=== PATIENT | female | born 1945 | race Caucasian/White ===

== ENCOUNTER 2020-02-21 19:47 | Inpatient (IN) | payer MEDICARE, BC, OTHER ==
[~2020-02-21] VITALS: Ht 157.5 cm; Wt 63.8 kg
[2020-02-21] MEDS ORDERED: METO25TA6 PO (21:01)
[2020-02-21] MEDS ORDERED: ALBU8.5H8 INH (21:01)
[2020-02-21] MEDS ORDERED: iohexol 350MG/ML 100ml bottle IV ONE (21:24)
[2020-02-21] MEDS ORDERED: magnesium hydroxide 30ml (MOM) UD suspension PO PRN (22:20)
[2020-02-21] MEDS ORDERED: ondansetron/PF 4mg/2ml inj IV PRN (22:20)
[2020-02-21] MEDS ORDERED: mag hydrox/Alum hydrox/simeth 30ml oral suspension PO PRN (22:20)
[2020-02-21] MEDS ORDERED: heparin 10,000 units/1 ML INJ IV ONE (22:20)
[2020-02-21] MEDS ORDERED: albuterol 2.5 MG/3 ML nebule NEB PRN (22:20)
[2020-02-21] MEDS ORDERED: acetaminophen 325mg tablet PO PRN (22:20)
[2020-02-21 22:25] LABS: BASOPHILS # (AUTO) 0.1 X10'3 (0-0.2); BASOPHILS % (AUTO) 0.9 % (0-1); EOSINOPHILS # (AUTO) 0.1 X10'3 (0-0.9); EOSINOPHILS % (AUTO) 1.1 % (0-6); HEMATOCRIT 43.6 % (35.0-45.0); HEMOGLOBIN 14.6 g/dl (12.0-16.0); LYMPHOCYTES # (AUTO) 2.7 X10'3 (1.1-4.8); LYMPHOCYTES % (AUTO) 30.1 % (21-51); MEAN CORPUSCULAR HEMOGLOBIN 31.5 PG (27.0-31.0); MEAN CORPUSCULAR HGB CONC 33.5 g/dL (33.0-36.5); MEAN CORPUSCULAR VOLUME 93.8 FL (78-98); MEAN PLATELET VOLUME 10.1 FL (7.4-10.4); MONOCYTES # (AUTO) 0.7 X10'3 (0-0.9); MONOCYTES % (AUTO) 8.2 % (2-12); NEUTROPHILS # (AUTO) 5.4 X10'3 (1.8-7.7); NEUTROPHILS % (AUTO) 59.7 % (42-75); PLATELET COUNT 236 X10'3 (140-440); RED BLOOD COUNT 4.65 X10'6 (4.20-5.60); RED CELL DISTRIBUTION WIDTH 14.3 % (11.5-14.5)
[2020-02-21 22:34] LABS: PARTIAL THROMBOPLASTIN TIME 33 SECONDS (22-32)
[2020-02-21] MEDS: heparin 25,000 UNIT/250ml bag 250 ML IV SCH (23:40)
[2020-02-22] VITALS (14 sets, daily range): BP systolic 88–119; BP diastolic 38–74
[2020-02-22 02:24] LABS: ALBUMIN 3.3 G/DL (3.4-5.0); ANION GAP 11 (8-16); BLOOD UREA NITROGEN 16 MG/DL (7-18); BUN/CREATININE RATIO 17.8 (6.6-38.0); CALCIUM 8.6 MG/DL (8.5-10.1); CHLORIDE 106 MMOL/L (99-107); GLUCOSE 122 MG/DL (70-104); SODIUM 140 MMOL/L (135-145); TOTAL CARBON DIOXIDE 22.6 MMOL/L (24-32); eGFR 61 ML/MIN
--- NOTE | 2020-02-22 04:00 | NUR ---
Patient in room ED 3. I have received report from Domenica AGRAWAL and had the opportunity to ask questions and assume patient care.
--- NOTE | 2020-02-22 04:20 | NUR ---
Patient arrived on unit alert and oriented. Two RN skin check and vital signs obtained. 90% on 2L, 109 HR, 125/61, 25 RR Telemetry monitoring applied. Will continue to monitor closely.
[2020-02-22 06:15] LABS: BASOPHILS % (AUTO) 0.5 % (0-1); EOSINOPHILS # (AUTO) 0.1 X10'3 (0-0.9); EOSINOPHILS % (AUTO) 0.7 % (0-6); HEMATOCRIT 41.9 % (35.0-45.0); HEMOGLOBIN 14.1 g/dl (12.0-16.0); LYMPHOCYTES # (AUTO) 1.9 X10'3 (1.1-4.8); LYMPHOCYTES % (AUTO) 19.5 % (21-51); MEAN CORPUSCULAR HEMOGLOBIN 31.5 PG (27.0-31.0); MEAN CORPUSCULAR HGB CONC 33.6 g/dL (33.0-36.5); MEAN CORPUSCULAR VOLUME 93.8 FL (78-98); MEAN PLATELET VOLUME 8.9 FL (7.4-10.4); MONOCYTES # (AUTO) 0.7 X10'3 (0-0.9); MONOCYTES % (AUTO) 7.2 % (2-12); NEUTROPHILS # (AUTO) 6.8 X10'3 (1.8-7.7); NEUTROPHILS % (AUTO) 72.1 % (42-75); PLATELET COUNT 219 X10'3 (140-440); RED BLOOD COUNT 4.47 X10'6 (4.20-5.60); RED CELL DISTRIBUTION WIDTH 14.1 % (11.5-14.5); WHITE BLOOD COUNT 9.5 X10'3 (4.5-11.0)
--- NOTE | 2020-02-22 06:19 | NUR ---
Problems reprioritized. Patient report given, questions answered & plan of care reviewed with Jessica AGRAWAL and Fabienne AGRAWAL.
--- NOTE | 2020-02-22 06:30 | NUR ---
Problems reprioritized. Patient report given from Lisa, questions answered & plan of care reviewed
[2020-02-22] MEDS ORDERED: furosemide 20 MG/2 ML vial IV SCH (08:00)
[2020-02-22] MEDS: heparin 25,000 UNIT/250ml bag 250 ML IV SCH ×2 (08:03→16:59)
[2020-02-22] MEDS: aspirin 81mg tablet.DR PO SCH (08:10)
[2020-02-22] MEDS ORDERED: magnesium Cl slow-release 64mg tablet PO PRN (10:20)
[2020-02-22] MEDS ORDERED: magnesium 4gm in 100ml NS 100 ML IV PRN (10:20)
[2020-02-22] MEDS ORDERED: potassium CL 10mEq/100ml bag 100 ML IV PRN (10:20)
[2020-02-22] MEDS ORDERED: potassium Cl 20 mEq SR tablet PO PRN (10:20)
[2020-02-22] MEDS ORDERED: nitroGLYCERIN 0.4mg SUBLingual tab SL PRN (10:25)
[2020-02-22] MEDS ORDERED: metoprolol tartrate 1mg/ml inj IV PRN (10:25)
[2020-02-22] MEDS ORDERED: aminophylline 250mg/10ml inj. IV PRN (10:25)
[2020-02-22] MEDS ORDERED: regadenoson 0.4mg/5ml syringe IV PRN (10:25)
[2020-02-22] MEDS: K and/or MAG REPLACEMENT MC SCH ×2 (10:36→20:00)
[2020-02-22] MEDS: metoprolol succinate 25mg (24-HOUR) SR. Tablet PO SCH (10:55)
--- NOTE | 2020-02-22 11:09 | NUR ---
paged Resp. Fannie Levine. [id number] is having SOB and progressive cough
[2020-02-22] MEDS ORDERED: METO25TA6 PO (11:16)
[2020-02-22] MEDS: furosemide 20 MG/2 ML vial IV SCH ×2 (15:38→16:00)
--- NOTE | 2020-02-22 16:30 | NUR ---
PAGER ID: [phone] MESSAGE: [id number]. Could you please clarify if the patient can eat her dinner? Thank you, Jessica [phone]
[2020-02-22] MEDS: heparin 10,000 units/1 ML INJ IV PRN (16:58)
--- NOTE | 2020-02-22 18:17 | NUR ---
Patient in room PCU 3013. I have received report from NGHIA Lopez and had the opportunity to ask questions and assume patient care.
--- NOTE | 2020-02-22 18:17 | NUR ---
Problems reprioritized. Patient report given to Chrystal, questions answered & plan of care reviewed with Jessica AGRAWAL and Fabienne AGRAWAL.
--- NOTE | 2020-02-22 18:31 | NUR ---
[place] documentation: I have reviewed and agree with interventions, assessments performed and documented by Fabienne AGRAWAL. [place] Medication Administration: For this medication-pass time frame, medication were reviewed, dispensed, administered and documented per hospital policy by Fabienne AGRAWAL.
[2020-02-23] VITALS (15 sets, daily range): BP systolic 86–106; BP diastolic 42–64
--- NOTE | 2020-02-23 00:31 | NUR ---
Sent to [facility] PAGER ID: [phone] MESSAGE: room 3013B Heriberto Levine: Patient is on 60 mg Lasix. Her BP is decreased trending high 80's-90's systolic. Hi have held the Lasix due to parameters to hold below systolic of 100. What do you advise? Thanks, Chrystal [id number]
[2020-02-23 05:55] LABS: BASOPHILS # (AUTO) 0.1 X10'3 (0-0.2); BASOPHILS % (AUTO) 0.8 % (0-1); EOSINOPHILS # (AUTO) 0.3 X10'3 (0-0.9); EOSINOPHILS % (AUTO) 2.9 % (0-6); HEMATOCRIT 41.3 % (35.0-45.0); HEMOGLOBIN 14.2 g/dl (12.0-16.0); LYMPHOCYTES % (AUTO) 33.9 % (21-51); MEAN CORPUSCULAR HEMOGLOBIN 32.2 PG (27.0-31.0); MEAN CORPUSCULAR HGB CONC 34.4 g/dL (33.0-36.5); MEAN CORPUSCULAR VOLUME 93.5 FL (78-98); MEAN PLATELET VOLUME 9.7 FL (7.4-10.4); MONOCYTES # (AUTO) 0.9 X10'3 (0-0.9); NEUTROPHILS # (AUTO) 4.6 X10'3 (1.8-7.7); NEUTROPHILS % (AUTO) 52.4 % (42-75); PLATELET COUNT 234 X10'3 (140-440); RED BLOOD COUNT 4.42 X10'6 (4.20-5.60); WHITE BLOOD COUNT 8.9 X10'3 (4.5-11.0)
--- NOTE | 2020-02-23 06:10 | NUR ---
Patient in room PCU 3013. I have received report from Chrystal AGRAWAL and had the opportunity to ask questions and assume patient care. Patient awake on report and in no distress.
[2020-02-23 06:23] LABS: ALANINE AMINOTRANSFERASE 21 U/L (12-78); ALBUMIN 3.3 G/DL (3.4-5.0); ALBUMIN/GLOBULIN RATIO 0.9 (1.1-1.5); ALKALINE PHOSPHATASE 96 IU/L (46-116); ANION GAP 15 (8-16); ASPARTATE AMINO TRANSFERASE 21 U/L (10-37); BILIRUBIN,TOTAL 0.7 MG/DL (0.1-1.0); BLOOD UREA NITROGEN 19 MG/DL (7-18); BUN/CREATININE RATIO 18.1 (6.6-38.0); CALCIUM 8.8 MG/DL (8.5-10.1); CHLORIDE 103 MMOL/L (99-107); CREATININE 1.05 MG/DL (0.40-0.90); GLUCOSE 137 MG/DL (70-104); PHOSPHORUS 3.6 MG/DL (2.3-4.5); POTASSIUM 3.2 MMOL/L (3.5-5.1); SODIUM 139 MMOL/L (135-145); TOTAL CARBON DIOXIDE 20.9 MMOL/L (24-32); TOTAL PROTEIN 6.9 G/DL (6.4-8.2); eGFR 51 ML/MIN
--- NOTE | 2020-02-23 06:28 | NUR ---
Patient in room PCU 3013. I have received report from NGHIA Jarrell and had the opportunity to ask questions and assume patient care. Pt awake during bedside report, heparin gtt running at 800 per MD orders.
--- NOTE | 2020-02-23 06:31 | NUR ---
Problems reprioritized. Patient report given, questions answered & plan of care reviewed with Gilma Baugh.
[2020-02-23] MEDS: aspirin 81mg tablet.DR PO SCH (07:36)
[2020-02-23] MEDS: heparin 10,000 units/1 ML INJ IV PRN (07:37)
[2020-02-23] MEDS: heparin 25,000 UNIT/250ml bag 250 ML IV SCH ×2 (07:39→15:19)
[2020-02-23] MEDS: potassium Cl 20 mEq SR tablet PO PRN ×3 (07:43→22:15)
[2020-02-23] MEDS: K and/or MAG REPLACEMENT MC SCH ×2 (07:45→20:00)
[2020-02-23] MEDS: furosemide 20 MG/2 ML vial IV SCH ×3 (08:00→16:00)
[2020-02-23] MEDS: metoprolol succinate 25mg (24-HOUR) SR. Tablet PO SCH (08:00)
[2020-02-23] MEDS ORDERED: LIDOcaine/PRILOcaine 5gm cream TP ONE (08:00)
--- NOTE | 2020-02-23 13:27 | NUR ---
Called dock or pier laborer, spoke to Krzysztof and informed him that pt's cardiac PTT at 1300 was 83. He said he will inform the MD.
--- NOTE | 2020-02-23 15:24 | NUR ---
Per Dr Wagner, keep pt off of the heparin gtt, he'll see what he needs to do after her angio/heart cath.
[2020-02-23] MEDS ORDERED: verapamil 2.5 mg/ml inj IV ONE (17:54)
[2020-02-23] MEDS ORDERED: fentaNYL/PF 50MCG/1 ML 2ML syringe ONE (17:54)
[2020-02-23] MEDS ORDERED: LIDOcaine 1% (10mg/ml)w/preservative injection 20ml MDV ONE (17:54)
[2020-02-23] MEDS ORDERED: nitroGLYCERIN-Tridil 50MG/D5W 250 ML IV ONE (17:54)
[2020-02-23] MEDS ORDERED: heparin 1,000unit/ml 10ml vial 10 ML ONE (17:54)
[2020-02-23] MEDS ORDERED: midazolam 2 mg/2 ml injection ONE (17:54)
[2020-02-23] MEDS ORDERED: iohexol 350 MG/ML 50ML vial IV ONE (17:55)
[2020-02-23] MEDS ORDERED: iohexol 350MG/ML 100ml bottle IV ONE (17:55)
--- NOTE | 2020-02-23 18:10 | NUR ---
Patient taken down to the research laboratory specialist at this time.
--- NOTE | 2020-02-23 18:17 | NUR ---
Problems reprioritized. Patient report given, questions answered & plan of care reviewed with NGHIA Kilgore. Informed RN pt is going to heart cath at 1800.
--- NOTE | 2020-02-23 18:30 | NUR ---
Patient in room PCU 3013. I have received report from Lupis AGRAWAL and Anthony AGRAWAL and had the opportunity to ask questions and assume patient care.
--- NOTE | 2020-02-23 20:00 | NUR ---
Patient returned from the manufacturing laborer at this time. She is alert and oriented and able to make her needs known. She has a fem stop in place to right groin and is instructed to lye flat for 7 hours per the MD orders. Pedal pulses intact and no bleeding or bruising noted to the cath site. Also hemostatic wrist band in place to right wrist since radial approach was initially attempted but failed. Also pressure dressing to right AC because this is where they were able to successfully cath her. She is on 2 liters oxygen nasal cannula. Vitals are stable with BP a little low SBP in the 90's but this is how she has been. She denies pain. Will continue to monitor.
[2020-02-23] MEDS ORDERED: HYDROcodone/acetaminophen 10/325mg tab PO PRN ×2 (20:30)
[2020-02-23] MEDS ORDERED: OXAZEpam 15mg capsule PO PRN (20:30)
[2020-02-23] MEDS ORDERED: magnesium hydroxide 30ml (MOM) UD suspension PO PRN (20:30)
[2020-02-23] MEDS ORDERED: cyclobenzaprine 10mg tablet PO PRN (20:30)
[2020-02-23] MEDS ORDERED: proCHLORperazine 10 MG/2 ml inj IV PRN (20:30)
[2020-02-23] MEDS ORDERED: acetaminophen 325mg tablet PO PRN (20:30)
[2020-02-24] VITALS (8 sets, daily range): BP systolic 91–105; BP diastolic 46–65
--- NOTE | 2020-02-24 03:20 | NUR ---
Patient's fem stop was removed at 0300 after she had been lying flat for seven hours. Still no bruising or bleeding noted to site and occlusive dressing with gauze is in place. She was assisted ambulating to the bathroom. Will continue to monitor.
[2020-02-24 06:03] LABS: BASOPHILS % (AUTO) 0.6 % (0-1); EOSINOPHILS # (AUTO) 0.2 X10'3 (0-0.9); HEMATOCRIT 41.2 % (35.0-45.0); LYMPHOCYTES # (AUTO) 1.9 X10'3 (1.1-4.8); LYMPHOCYTES % (AUTO) 23.9 % (21-51); MEAN CORPUSCULAR HEMOGLOBIN 31.7 PG (27.0-31.0); MEAN CORPUSCULAR HGB CONC 33.9 g/dL (33.0-36.5); MEAN CORPUSCULAR VOLUME 93.6 FL (78-98); MONOCYTES # (AUTO) 0.8 X10'3 (0-0.9); MONOCYTES % (AUTO) 10.1 % (2-12); NEUTROPHILS % (AUTO) 63.4 % (42-75); PLATELET COUNT 222 X10'3 (140-440); RED BLOOD COUNT 4.41 X10'6 (4.20-5.60); RED CELL DISTRIBUTION WIDTH 13.8 % (11.5-14.5); WHITE BLOOD COUNT 7.8 X10'3 (4.5-11.0)
--- NOTE | 2020-02-24 06:08 | NUR ---
Patient in room PCU 3013. I have received report from Lupis AGRAWAL and Anthony AGRAWAL and had the opportunity to ask questions and assume patient care.
[2020-02-24 06:10] LABS: ALANINE AMINOTRANSFERASE 24 U/L (12-78); ALBUMIN 3.3 G/DL (3.4-5.0); ALKALINE PHOSPHATASE 95 IU/L (46-116); ANION GAP 9 (8-16); ASPARTATE AMINO TRANSFERASE 22 U/L (10-37); BILIRUBIN,TOTAL 0.7 MG/DL (0.1-1.0); BLOOD UREA NITROGEN 16 MG/DL (7-18); BUN/CREATININE RATIO 16.2 (6.6-38.0); CALCIUM 8.6 MG/DL (8.5-10.1); CHLORIDE 107 MMOL/L (99-107); CHOL/HDL RATIO 3.1 (0.00-4.99); CHOLESTEROL 208 MG/DL (0-200); CREATININE 0.99 MG/DL (0.40-0.90); GLUCOSE 111 MG/DL (70-104); HDL CHOLESTEROL 68 MG/DL (35-60); LDL CHOLESTEROL 113 MG/DL (50-100); MAGNESIUM 2.2 MG/DL (1.5-2.4); PHOSPHORUS 3.2 MG/DL (2.3-4.5); POTASSIUM 4.2 MMOL/L (3.5-5.1); SODIUM 139 MMOL/L (135-145); TOTAL CARBON DIOXIDE 23.2 MMOL/L (24-32); TOTAL PROTEIN 6.7 G/DL (6.4-8.2); TRIGLYCERIDES 113 MG/DL (20-135); eGFR 55 ML/MIN
--- NOTE | 2020-02-24 06:10 | NUR ---
Patient in room [place] [address]. I have received report from and had the opportunity to ask questions and assume patient care. Addendum: 02/24/20 at 0631 by Anthony Quintanilla RN Patient in room [place] [address]. I have received report from Magui AGRAWAL and had the opportunity to ask questions and assume patient care. Patient awake on report and in no distress.
--- NOTE | 2020-02-24 06:32 | NUR ---
Patient in room PCU 3013. I have received report from NGHIA Kilgore and had the opportunity to ask questions and assume patient care. Pt awake, watching tv comfortably.
[2020-02-24 07:06] LABS: ISTAT HGB ART 12.9 g/dl (12.0-16.0); ISTAT Hct ART 38 %PCV (35-48); ISTAT O2 SATURATION ARTERIAL 91 % (95-98); ISTAT SOURCE ART
[2020-02-24] MEDS: K and/or MAG REPLACEMENT MC SCH ×2 (08:00→19:15)
[2020-02-24] MEDS: aspirin 81mg tablet.DR PO SCH (08:33)
[2020-02-24] MEDS: metoprolol succinate 25mg (24-HOUR) SR. Tablet PO SCH (08:34)
[2020-02-24] MEDS: docusate sod 100mg capsule PO SCH ×2 (08:34→19:30)
[2020-02-24] MEDS: furosemide 20 MG/2 ML vial IV SCH ×3 (08:35→16:00)
[2020-02-24 15:49] LABS: PLEURAL FLUID PH 7.435 (7.63-7.65)
[2020-02-24 15:50] LABS: BFSOURCE LEFT PLEURAL FLD
--- NOTE | 2020-02-24 15:59 | NUR ---
Cardiac diet consult: Pt admit w/ type II CO from demand ischemia and acute CHF exacerbation s/p cardiac cath per EMR. PO 75-100% avg initial heart healthy diet. Na WNL. Cholesterol 208 though HDL 68 and LDL 113; mild elevation and Cholesterol likely WNL considering HDL. Decent given geriatric age. Cardiac diet ed not appropriate at this time. Will continue to monitor. Addendum: 02/24/20 at [address] Amended: Links added.
[2020-02-24 16:03] LABS: GLUCOSE,BODY FLUID 172 MG/DL; LDH,BODY FLUID 81 U/L; TOTAL PROTEIN,BODY FLUID 2.4 G/DL
[2020-02-24 16:30] LABS: BF MESOTHELIAL CELLS FEW; BF RBC COUNT 28675 /CU MM; BF WBC COUNT 220 /CU MM (0-1000); BFAPPEAR HAZY; BFCOLOR RED; BFVOLUME 50 ML; LYMPHOCYTES,BODY FLUID 50 %; MONOCYTES,BODY FLUID 10 %; NEUTROPHILS,BODY FLUID 40 %
--- NOTE | 2020-02-24 18:18 | NUR ---
Problems reprioritized. Patient report given, questions answered & plan of care reviewed with Magui AGRAWAL. Patient resting comftorably in bed and in no distress.
--- NOTE | 2020-02-24 18:19 | NUR ---
[place] Medication Administration: For this medication-pass time frame, all medication were reviewed, dispensed, administered and documented per hospital policy by NGHIA Cruz.
--- NOTE | 2020-02-24 18:19 | NUR ---
[place]rientee documentation: I have reviewed and agree with all interventions, assessments performed and documented by NGHIA Cruz.
--- NOTE | 2020-02-24 18:20 | NUR ---
Problems reprioritized. Patient report given, questions answered & plan of care reviewed with NGHIA Kilgore. All pt needs met at this time.
--- NOTE | 2020-02-24 18:27 | NUR ---
Patient in room PCU 3013. I have received report from Anthony AGRAWAL and Lupis RN and had the opportunity to ask questions and assume patient care.
[2020-02-25] MEDS: furosemide 20 MG/2 ML vial IV SCH ×2 (00:52→08:00)
[2020-02-25 02:00] VITALS: BP 109/59
--- NOTE | 2020-02-25 06:01 | NUR ---
Problems reprioritized. Patient report given, questions answered & plan of care reviewed with Lupis AGRAWAL and Anthony AGRAWAL.
[2020-02-25 06:07] LABS: EOSINOPHILS # (AUTO) 0.1 X10'3 (0-0.9); MEAN PLATELET VOLUME 9.8 FL (7.4-10.4); MONOCYTES # (AUTO) 0.9 X10'3 (0-0.9)
--- NOTE | 2020-02-25 06:08 | NUR ---
Patient in room U 3013. I have received report from Magui AGRAWAL and had the opportunity to ask questions and assume patient care. Patient awake on report and in no apparent distress.
--- NOTE | 2020-02-25 06:09 | NUR ---
Patient in room PCU 3013. I have received report from NGHIA Kilgore and had the opportunity to ask questions and assume patient care. Pt sleeping comfortably.
[2020-02-25 06:10] LABS: BASOPHILS % (AUTO) 0.4 % (0-1); HEMATOCRIT 42.6 % (35.0-45.0); HEMOGLOBIN 14.4 g/dl (12.0-16.0); LYMPHOCYTES # (AUTO) 2.1 X10'3 (1.1-4.8); LYMPHOCYTES % (AUTO) 21.5 % (21-51); MEAN CORPUSCULAR HEMOGLOBIN 31.8 PG (27.0-31.0); MEAN CORPUSCULAR HGB CONC 33.9 g/dL (33.0-36.5); MEAN CORPUSCULAR VOLUME 93.8 FL (78-98); NEUTROPHILS # (AUTO) 6.7 X10'3 (1.8-7.7); NEUTROPHILS % (AUTO) 68.1 % (42-75); PLATELET COUNT 215 X10'3 (140-440); RED BLOOD COUNT 4.54 X10'6 (4.20-5.60); RED CELL DISTRIBUTION WIDTH 13.9 % (11.5-14.5); WHITE BLOOD COUNT 9.9 X10'3 (4.5-11.0)
[2020-02-25 06:28] LABS: ALANINE AMINOTRANSFERASE 23 U/L (12-78); ALBUMIN 3.5 G/DL (3.4-5.0); ALBUMIN/GLOBULIN RATIO 0.9 (1.1-1.5); ALKALINE PHOSPHATASE 98 IU/L (46-116); ANION GAP 13 (8-16); ASPARTATE AMINO TRANSFERASE 19 U/L (10-37); BILIRUBIN,TOTAL 0.9 MG/DL (0.1-1.0); BLOOD UREA NITROGEN 21 MG/DL (7-18); BUN/CREATININE RATIO 19.3 (6.6-38.0); CALCIUM 8.9 MG/DL (8.5-10.1); CHLORIDE 101 MMOL/L (99-107); CREATININE 1.09 MG/DL (0.40-0.90); GLUCOSE 139 MG/DL (70-104); MAGNESIUM 2.1 MG/DL (1.5-2.4); PHOSPHORUS 3.4 MG/DL (2.3-4.5); POTASSIUM 3.4 MMOL/L (3.5-5.1); SODIUM 137 MMOL/L (135-145); TOTAL CARBON DIOXIDE 23.1 MMOL/L (24-32); TOTAL PROTEIN 7.3 G/DL (6.4-8.2); eGFR 49 ML/MIN
[2020-02-25 07:00] VITALS: BP 96/38
[2020-02-25] MEDS: aspirin 81mg tablet.DR PO SCH (07:36)
[2020-02-25] MEDS: docusate sod 100mg capsule PO SCH (07:37)
[2020-02-25] MEDS: potassium Cl 20 mEq SR tablet PO PRN (07:37)
[2020-02-25] MEDS: metoprolol succinate 25mg (24-HOUR) SR. Tablet PO SCH (08:00)
[2020-02-25] MEDS: K and/or MAG REPLACEMENT MC SCH (08:00)
--- NOTE | 2020-02-25 14:15 | NUR ---
Patient stable for transfer to [facility] for rehab via [employer] transportation service per MD orders. Patient report given to Lyssa AGRAWAL and answered all questions. PIV discontinued. air sampling and monitoring discontinued. Belonging collected and sent with patient. Patient picked up by [employer] in room via wheelchair.
--- NOTE | 2020-02-25 17:05 | NUR ---
[place]rientee documentation: I have reviewed and agree with all interventions, assessments performed and documented by NGHIA Cruz.
--- NOTE | 2020-02-25 17:06 | NUR ---
[place] Medication Administration: For this medication-pass time frame, all medication were reviewed, dispensed, administered and documented per hospital policy by NGHIA Cruz.
== END 2020-02-25 14:18 | DRG 282 ==
LOC: ER 19:48 → ED HOLD 22:16 → PCU 3S 02-22 04:20
PROVIDERS: ADMIT Family Medicine; ATTEND Family Medicine
PROC: B32T1ZZ Computerized Tomography (CT Scan) of Left Pulmonary Artery using Low Osmolar Contrast (ICD-10-PCS; 2020-02-21)
PROC: B3201ZZ Computerized Tomography (CT Scan) of Thoracic Aorta using Low Osmolar Contrast (ICD-10-PCS; 2020-02-21)
PROC: B32S1ZZ Computerized Tomography (CT Scan) of Right Pulmonary Artery using Low Osmolar Contrast (ICD-10-PCS; 2020-02-21)
PROC: 4A02XM4 Measurement of Cardiac Total Activity, External Approach (ICD-10-PCS; 2020-02-22)
PROC: 3E073KZ Introduction of Other Diagnostic Substance into Coronary Artery, Percutaneous Approach (ICD-10-PCS; 2020-02-22)
PROC: 4A023N8 Measurement of Cardiac Sampling and Pressure, Bilateral, Percutaneous Approach (ICD-10-PCS; principal; 2020-02-23)
PROC: B2111ZZ Fluoroscopy of Multiple Coronary Arteries using Low Osmolar Contrast (ICD-10-PCS; 2020-02-23)
PROC: B2151ZZ Fluoroscopy of Left Heart using Low Osmolar Contrast (ICD-10-PCS; 2020-02-23)
PROC: B3101ZZ Fluoroscopy of Thoracic Aorta using Low Osmolar Contrast (ICD-10-PCS; 2020-02-23)
PROC: 0W9B3ZZ Drainage of Left Pleural Cavity, Percutaneous Approach (ICD-10-PCS; 2020-02-25)
DX: I11.0 Hypertensive heart disease with heart failure (principal); I21.A1 Myocardial infarction type 2; I50.23 Acute on chronic systolic (congestive) heart failure; I08.0 Rheumatic disorders of both mitral and aortic valves; I25.10 Atherosclerotic heart disease of native coronary artery without angina pectoris; D64.9 Anemia, unspecified; I95.9 Hypotension, unspecified; R00.0 Tachycardia, unspecified; J45.909 Unspecified asthma, uncomplicated; Z90.710 Acquired absence of both cervix and uterus; Z82.49 Family history of ischemic heart disease and other diseases of the circulatory system; Z88.2 Allergy status to sulfonamides; Z88.8 Allergy status to other drugs, medicaments and biological substances
CPT/HCPCS: 32555; 36415; 71045; 71275; 78452; 80048; 80053; 80061; 82803; 82945; 83615; 83735; 83880; 83986; 84100; 84145; 84157; 84443; 84484; 85014; 85025; 85347; 85610; 85730; 87070; 87081; 88108; 88305; 88313; 88341; 88342; 89051; 93005; 93017; 93308; 93460; 93567; 94640; 94760; 97116; 97161; 97530; 99152; 99153; 99285; A5120; A9500; C1769; C1887; C1894; G0378; J1644; J1940; J2001; J2250; J2785; J3010; J3490; Q9967

== ENCOUNTER 2020-04-08 11:27 | Emergency (ER) | payer MEDICARE, BC, OTHER ==
[~2020-04-08] VITALS: Ht 157.5 cm; Wt 60.9 kg
[~2020-04-08 11:27] MED LIST: ALBU8.5H8 INH; METO25TA6 PO
[2020-04-08 12:15] LABS: BASOPHILS # (AUTO) 0.1 X10'3 (0-0.2); BASOPHILS % (AUTO) 0.9 % (0-1); EOSINOPHILS # (AUTO) 0.2 X10'3 (0-0.9); EOSINOPHILS % (AUTO) 2.4 % (0-6); HEMATOCRIT 43.2 % (35.0-45.0); HEMOGLOBIN 14.3 g/dl (12.0-16.0); LYMPHOCYTES # (AUTO) 1.8 X10'3 (1.1-4.8); LYMPHOCYTES % (AUTO) 26.1 % (21-51); MEAN CORPUSCULAR HEMOGLOBIN 30.4 PG (27.0-31.0); MEAN CORPUSCULAR VOLUME 92.3 FL (78-98); MEAN PLATELET VOLUME 8.4 FL (7.4-10.4); MONOCYTES # (AUTO) 0.7 X10'3 (0-0.9); MONOCYTES % (AUTO) 9.5 % (2-12); NEUTROPHILS # (AUTO) 4.3 X10'3 (1.8-7.7); NEUTROPHILS % (AUTO) 61.1 % (42-75); PLATELET COUNT 252 X10'3 (140-440); RED BLOOD COUNT 4.69 X10'6 (4.20-5.60); RED CELL DISTRIBUTION WIDTH 13.8 % (11.5-14.5)
[2020-04-08 12:26] LABS: PARTIAL THROMBOPLASTIN TIME 43 SECONDS (22-32)
[2020-04-08 12:29] LABS: ALANINE AMINOTRANSFERASE 25 U/L (12-78); ALBUMIN 3.8 G/DL (3.4-5.0); ALKALINE PHOSPHATASE 114 IU/L (46-116); ANION GAP 6 (8-16); ASPARTATE AMINO TRANSFERASE 20 U/L (10-37); BILIRUBIN,TOTAL 0.3 MG/DL (0.1-1.0); BLOOD UREA NITROGEN 21 MG/DL (7-18); BUN/CREATININE RATIO 17.9 (6.6-38.0); CALCIUM 9.4 MG/DL (8.5-10.1); CHLORIDE 103 MMOL/L (99-107); CREATININE 1.17 MG/DL (0.40-0.90); GLUCOSE 102 MG/DL (70-104); POTASSIUM 4.3 MMOL/L (3.5-5.1); SODIUM 140 MMOL/L (135-145); TOTAL CARBON DIOXIDE 30.7 MMOL/L (24-32); TOTAL PROTEIN 7.7 G/DL (6.4-8.2); eGFR 45 ML/MIN
[2020-04-08 12:46] VITALS: BP 127/64
== END 2020-04-08 12:48 | disposition home or self-care (01) ==
LOC: ER 11:30
DX: R04.2 Hemoptysis (principal); I50.9 Heart failure, unspecified; J45.909 Unspecified asthma, uncomplicated; Z79.01 Long term (current) use of anticoagulants; Z88.2 Allergy status to sulfonamides; Z88.8 Allergy status to other drugs, medicaments and biological substances; Z79.899 Other long term (current) drug therapy
CPT/HCPCS: 36415; 71045; 80053; 85025; 85610; 85730; 99284

== ENCOUNTER → 2021-03-15 | Outpatient (CLI) | payer MEDICARE, BC, OTHER ==
[~2021-03-15] MED LIST changes: +ALBU8.5H17 INH; -ALBU8.5H8 INH; +LOP25T PO; -METO25TA6 PO
== END | disposition home or self-care (01) ==
LOC: RT 14:16
PROVIDERS: ATTEND Internal Medicine Cardiovascular Disease
DX: Z79.899 Other long term (current) drug therapy (principal)
CPT/HCPCS: 71046; 85018; 94010; 94727; 94729